=== PATIENT | female | born 1990 | race Caucasian/White ===

== ENCOUNTER 2021-09-30 01:03 | Emergency (ER) | payer OTHER ==
[2021-09-30 01:07] VITALS: RESP 20
--- NOTE | 2021-09-30 03:49 | ED ---
Psych HPI - General Chief Complaint: Psychiatric Symptoms Stated Complaint: Mental health Time Seen by Provider: 09/30/21 01:41 Source: patient, RN notes reviewed, old records reviewed Mode of arrival: EMS Limitations: altered mental status - History of Present Illness Initial Comments: This is a 31-year-old female to the emergency department for evaluation. Patient having hallucinations and delusions. He voices. Patient denies homicidal or suicidal thoughts. Patient was sent in by statement are for psychiatric evaluation and management MD Complaint: altered mental status (Patient is hearing voices) -: unknown Associated Psychiatric Symptoms: auditory hallucinations History of same: Yes Quality: intermittent, getting worse Improves With: none Worsens With: none Context: not taking psychiatric medications, significant life stressor Associated Symptoms: denies other symptoms Treatments Prior to Arrival: placed on mental health hold - Related Data Allergies Allergy/AdvReac Type Severity Reaction Status Date / Time citalopram [From Celexa] Allergy Hallucinati Verified 09/30/21 01:10 ons lurasidone [From Latuda] Allergy Hallucinati Verified 09/30/21 01:10 ons Penicillins Allergy Rash/Hives Verified 09/30/21 01:10 Sulfa (Sulfonamide Allergy Rash/Hives Verified 09/30/21 01:10 Antibiotics) ziprasidone [From Geodon] Allergy Hallucinati Verified 09/30/21 01:10 ons Review of Systems ROS Statement: Those systems with pertinent positive or pertinent negative responses have been documented in the HPI. ROS Other: All systems not noted in ROS Statement are negative. Past Medical History Additional Past Medical History / Comment(s): bladder and kidney infections History of Any Multi-Drug Resistant Organisms: None Reported Past Surgical History: No Surgical Hx Reported Past Psychological History: Anxiety, Bipolar, Depression Smoking Status: Never smoker Past Alcohol Use History: Abuse Past Drug Use History: Marijuana General Exam Limitations: no limitations General appearance: alert, in no apparent distress Head exam: Present: atraumatic, normocephalic, normal inspection Eye exam: Present: normal appearance, PERRL, EOMI. Absent: scleral icterus, conjunctival injection, periorbital swelling ENT exam: Present: normal exam, mucous membranes moist Neck exam: Present: normal inspection. Absent: tenderness, meningismus, lymphadenopathy Respiratory exam: Present: normal lung sounds bilaterally. Absent: respiratory distress, wheezes, rales, rhonchi, stridor Cardiovascular Exam: Present: regular rate, normal rhythm, normal heart sounds. Absent: systolic murmur, diastolic murmur, rubs, gallop, clicks GI/Abdominal exam: Present: soft, normal bowel sounds. Absent: distended, tenderness, guarding, rebound, rigid Extremities exam: Present: normal inspection, full ROM, normal capillary refill. Absent: tenderness, pedal edema, joint swelling, calf tenderness Back exam: Present: normal inspection Neurological exam: Present: alert, oriented X3, CN II-XII intact Psychiatric exam: Present: normal affect, normal mood Skin exam: Present: warm, dry, intact, normal color. Absent: rash Course Vital Signs 09/30/21 09/30/21 01:03 05:47 Temperature 98.2 F 97 F L Pulse Rate 96 79 Respiratory 20 20 Rate Blood Pressure 104/57 121/71 O2 Sat by Pulse 100 97 Oximetry - Reevaluation(s) Reevaluation #1: 09/30/21 04:10 Medical records reviewed Reevaluation #2: 09/30/21 04:10 Patient vital signs are normal no signs of overdose or withdrawal Medical Decision Making - Medical Decision Making 31-year-old female to the emergency department for evaluation. Patient presents today for evaluation in regards to significant hallucinations and delusions. Patient not homicidal or suicidal seen in however psychiatry can be discharged home Disposition Clinical Impression: Acute psychosis Disposition: HOME SELF-CARE Condition: Fair Instructions (If sedation given, give patient instructions): Hallucinations (ED), Psychiatric Hallucinations (ED) Is patient prescribed a controlled substance at d/c from ED?: No Referrals: Nonstaff,Physician [Primary Care Provider] - 1-2 days
[2021-09-30 05:47] VITALS: BP 121/71; PULSE 79; TEMP 97
== END 2021-09-30 05:50 | disposition home or self-care (01) ==
LOC: EC 01:03
DX: F23 Brief psychotic disorder (principal); F31.9 Bipolar disorder, unspecified; F41.9 Anxiety disorder, unspecified; F12.90 Cannabis use, unspecified, uncomplicated
CPT/HCPCS: 82075; 99284